=== PATIENT | female | born 1970 | race Caucasian/White ===

== ENCOUNTER 2018-06-25 21:07 | Emergency (ER) | payer BC ==
[~2018-06-25 21:07] MED LIST: Iopamidol 370 76% 100 ML VIAL ONE
[2018-06-25 21:39] LABS: #Basophils 0.1 thou/uL (0.0-0.2); #Eosinphils 0.2 thou/uL (0.0-0.7); #Lymphocytes 4.1 thou/uL (1.20-3.40); #Monocytes 0.7 thou/uL (0.11-0.59); #Neutrophils 4.6 thou/uL (1.40-6.50); %Basophils 1.5 % (0.0-1.0); %Eosinophils 1.6 % (0.0-10.0); %Lymphocytes 42.4 % (21.0-51.0); %Monocytes 7.4 % (0.0-10.0); %Neutrophils 47.2 % (42.0-75.0); Hemoglobin 15.2 g/dL (12.0-16.0); Mean Corpuscular HGB CONC 34.7 g/dL (32.0-36.0); Mean Corpuscular Hemoglobin 33.5 pg (27.0-31.0); Mean Corpuscular Volume 96.5 fL (78.0-98.0); Mean Platelet Volume 6.9 fL (7.4-10.4); Platelet Count 205 thou/uL (130-400); Red Blood Cell (RBC) Count 4.55 mill/uL (4.20-5.40); White Blood Cell (WBC) Count 9.8 thou/uL (4.8-10.8)
[2018-06-25 21:46] LABS: BHCG - Serum Negative (NEGATIVE); Pregs Control Background? CLEAR/WHITE (CLR/WHITE); Pregs Control Bar Appear? YES (CONTROL BAR)
[2018-06-25 21:55] LABS: ALT (SGPT) 33 U/L (8-55); AST (SGOT) 85 U/L (5-34); Alcohol 373 mg/dL (Less than 10); Alkaline Phosphatase 145 U/L (40-150); Anion Gap 16 mmol/L (10-20); BUN (Urea Nitrogen) Less than 4 mg/dL (7.0-18.7); Bilirubin, Total 0.5 mg/dL (0.2-1.2); Calc. Creatinine Clearance 0 mL/min (70-130); Calcium 8.9 mg/dL (7.8-10.44); Carbon Dioxide 26 mmol/L (22-29); Chloride 108 mmol/L (98-107); Estimated GFR-MDRD Greater than 90; Globulin 5.1 g/dL (2.4-3.5); Glucose 124 mg/dL (70-105); Potassium 3.5 mmol/L (3.5-5.1); Protein, Total 9.1 g/dL (6.0-8.3); Sodium 146 mmol/L (136-145)
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
== END 2018-06-25 23:07 | disposition home or self-care (01) ==
LOC: SCSER 21:07
DX: T71.9XXA Asphyxiation due to unspecified cause, initial encounter (principal); S00.83XA Contusion of other part of head, initial encounter; S10.91XA Abrasion of unspecified part of neck, initial encounter; I10 Essential (primary) hypertension; F17.210 Nicotine dependence, cigarettes, uncomplicated; Y04.2XXA Assault by strike against or bumped into by another person, initial encounter
CPT/HCPCS: 36415; 70450; 70486; 70498; 71045; 80053; 80307; 84703; 85025

== ENCOUNTER 2019-03-04 07:36 | Inpatient (IN) | payer BC ==
[2019-03-04 08:13] LABS: INR-International Normal Ratio 1.4; PTT 37.1 SEC (22.9-36.1); Prothrombin Time 17.2 SEC (12.0-14.7)
[2019-03-04] MEDS ORDERED: Pantoprazole 40 MG VIAL ONE (08:16)
[2019-03-04] MEDS ORDERED: Ondansetron PF 4 MG/2 ML Vial ONE (08:16)
[2019-03-04 08:17] LABS: Bilirubin Small (Negative); Blood, Urine Negative (Negative); Clarity Cloudy (Clear); Glucose, Urine (Dipstick) Negative (Negative); Leukocyte Negative (Negative); Nitrite Negative (Negative); Protein, Urine (Dipstick) Negative (Neg-Trace); Urobilinogen > or = 8.0 mg/dL (Less than 2)
[2019-03-04] MEDS ORDERED: Multivit, Adult Inj 10 ML VIAL ONE ×2 (08:17)
[2019-03-04 08:21] LABS: ALT (SGPT) 29 U/L (8-55); AST (SGOT) 106 U/L (5-34); Albumin 3.5 g/dL (3.5-5.0); Alcohol Less than 10 mg/dL (Less than 10); Alkaline Phosphatase 132 U/L (40-150); Anion Gap 18 mmol/L (10-20); BUN (Urea Nitrogen) Less than 4 mg/dL (7.0-18.7); Bilirubin, Total 5.4 mg/dL (0.2-1.2); Calc. Creatinine Clearance 0 mL/min (70-130); Calcium 9.3 mg/dL (7.8-10.44); Carbon Dioxide 22 mmol/L (22-29); Chloride 96 mmol/L (98-107); Estimated GFR-MDRD Greater than 90; Globulin 5.8 g/dL (2.4-3.5); Glucose 117 mg/dL (70-105); Lipase 12 U/L (8-78); Protein, Total 9.3 g/dL (6.0-8.3); Sodium 132 mmol/L (136-145)
[2019-03-04 08:22] LABS: Band 1 % (5-11); Eosinophils 2 % (0-10); Hemoglobin 13.1 g/dL (12.0-16.0); Lymphocytes 16 % (21-51); MDiff Complete? YES; Macrocytosis SLIGHT = 6-15 cells (100X) (0-5/hpf); Mean Corpuscular Hemoglobin 36.7 pg (27.0-31.0); Mean Platelet Volume 6.5 fL (7.4-10.4); Monocytes 6 % (0-10); Neutrophil 74 % (42-75); Platelet Count 179 thou/uL (130-400); Platelet Morphology Comment Appears Adequate; RBC Distribution Width 12.3 % (11.5-14.5); Red Blood Cell (RBC) Count 3.56 mill/uL (4.20-5.40); Target Cells SLIGHT = 2-5 cells (100X) (0-1/hpf); White Blood Cell (WBC) Count 13.4 thou/uL (4.8-10.8)
[2019-03-04] MEDS ORDERED: Thiamine HCl 200 MG/2 ML VIAL ONE (08:38)
[2019-03-04] MEDS ORDERED: Lorazepam 2 MG/ML VIAL ONE (08:40)
--- NOTE | 2019-03-04 08:48 | RAD ---
TWO VIEW CHEST: History: Dyspnea. Comparison: Portable chest, 06-25-18 FINDINGS: Lung wadsworth appear clear. No evidence of infiltrate or vascular congestion. The heart and mediastinum unremarkable. Osseous structures unremarkable. IMPRESSION: Unremarkable chest. POS: [facility]
[2019-03-04] MEDS ORDERED: Piperacillin/Tazobactam 3.375 GM VIAL ONE (08:58)
[2019-03-04] MEDS ORDERED: Sodium Chloride 0.9% 100 ML ONE (08:58)
--- NOTE | 2019-03-04 11:07 | CT ---
CT ABDOMEN AND PELVIS WITHOUT IV CONTRAST: INDICATION: Abdominal pain. COMPARISON: Comparison is made to a noncontrast CT abdomen and pelvis dated 09/29/2016. FINDINGS: Lung bases are clear. There has been significant change in the appearance of the liver since the prior study. The prior ex am revealed low attenuation suggesting fatty infiltration. Today's exam reveals hepatomegaly which was present previously; however, there are now numerous low-d ensity foci seen throughout the liver suggesting a diffuse process. Postcontrast exam of the abdomen is recommended for further characterization of the liver. The patient is post cholecystectomy. There is no evidence of biliary duct dilatation. Spleen unremarkable. Pancreas unremarkable. Nonspecific haziness is seen in the root of the mesentery suggesting inflammatory change. This is a new finding. The adrenal glands and kidneys are unremarkable. No hydronephrosis. Small bowel loops appear normal caliber. There is a moderate amount of free fluid seen in the pelvis. A small amount of fluid in the right co lonic gutter. Aorta is calcified but normal caliber. Nonspecific paraaortic lymph nodes appear similar to the prior exam. Review of the osseous structures reveals an irregularly shaped area of sclerosis in the right ileum. This is stable from prior exam and most likely represents a benign bone island. IMPRESSION: 1. There is hepatomegaly. Numerous tiny low-density foci are seen throughout the liver indicating a diffuse process. Recommend postcontrast CT of the abdomen to further characterize the liver finding s. 2. There is small volume ascites with a moderate amount of free fluid in the pelvis. Evidence of me senteric edema. POS: [facility]
[2019-03-04] MEDS ORDERED: Ondansetron PF 4 MG/2 ML Vial IVP PRN (15:30)
[2019-03-04] MEDS ORDERED: Senokot S 8.6-50 MG TAB PO PRN (15:30)
[2019-03-04] MEDS ORDERED: HYDROcodone/Acetaminophen 5/325 mg Tablet PO PRN (15:30)
[2019-03-04] MEDS ORDERED: Guaifenesin DM 100-10/5 ML UDCUP PO PRN (15:30)
[2019-03-04] MEDS ORDERED: Acetaminophen 325 MG TAB PO PRN (15:30)
[2019-03-04] MEDS ORDERED: Bisacodyl 10 MG SUPP PR PRN (15:30)
[2019-03-04 16:07] VITALS: BMI 24.3
[2019-03-04] MEDS ORDERED: Gadobenate Dimeglumine 529 MG/1 ML (20ML VIAL) ONE (16:38)
[2019-03-04] MEDS: Sodium Chloride 0.9% 1,000 ML IV SCH (17:21)
[2019-03-04] MEDS ORDERED: Temazepam 15 MG CAP PO PRN (17:53)
--- NOTE | 2019-03-04 18:01 | MRI ---
MRI ABDOMEN WITH AND WITHOUT IV CONTRAST: 03/04/19 HISTORY: Abdominal pain, alcohol abuse. FINDINGS: Correlation is made with the CT abdomen and pelvis from the same date. The liver demonstrates irregular surface consistent with cirrhosis. There is diffusely decreased sign al on the [id number] images compared to the in-phase images consistent with fatty infiltration. The re are diffuse tiny low intensity lesions on T1 and T2 images indicative of iron deposition. No enhan cing mass is seen in the liver to suggest hepatocellular carcinoma. The spleen measures 11.5 cm in le ngth. The pancreas, adrenal glands and kidneys are normal. A small amount of ascites is noted. There is no evidence of aneurysmal dilatation of the abdominal aorta. The bone marrow signal is normal. No portal splenic thrombosis is seen. The patient is also post cholecystectomy. No abnormal biliary duct al dilatation is seen. IMPRESSION: 1. Cirrhosis of the liver with fatty infiltration and hemosiderin deposition. 2. Mild ascites. 3. No evidence of enhancing hepatic mass to suggest hepatocellular carcinoma. POS: [facility]
--- NOTE | 2019-03-04 18:11 | HP ---
REASON FOR ADMISSION: Abdominal pain, alcoholic hepatitis, alcohol abuse, cirrhosis. HISTORY OF PRESENTING ILLNESS: The patient gives history of having abdominal pain for almost a month. This was more in the epigastric area and slowly moved into right lower quadrant. The patient says the abdominal pain is 3/10 to 4/10 in intensity and is always there. There is no radiation of this pain as such. Her last bowel movement was this morning and it was semi-solid. She states the stool was floating in the toilet. No bleeding per rectum. No complaints of chest pain, palpitation, PND, or orthopnea. No complaints of fever as such at home. She is currently ambulating in the room and was doing so at home as well. She admits to drinking 7 beers a day on a daily basis. PAST MEDICAL AND SURGICAL HISTORY: Hypertension; cholecystectomy; hysterectomy, which is partial. Colonoscopy done 7 years back in [place] was normal as far as she knows. She has had a stress test done 7 years back in [place] as well, which was normal as far as she knows. No angiogram was done. CURRENT MEDICATIONS: The patient does not take any medications on a regular basis. ALLERGIES: TO CODEINE. PERSONAL HISTORY: Drinks 6 to 7 beers on a daily basis and does not abuse drugs. Smokes 6 to 7 cigarettes a day. . FAMILY HISTORY: Both parents at the age of 61. Mother had complications from small-bowel obstruction, of sepsis. Father had complications from CABG, wound infection, and complications. CODE STATUS: Full. Power of attorney at law is her . REVIEW OF SYSTEMS: CONSTITUTIONAL: Negative for weight loss or gain, ability to conduct usual activities. SKIN: Negative for rash, itching. EYES: Negative for double vision, pain. ENT/MOUTH: Negative for nose bleeding, neck stiffness, pain, tenderness. CARDIOVASCULAR: Negative for palpitations, dyspnea on exertion, orthopnea. RESPIRATORY: Negative for shortness of breath, wheezing, cough, hemoptysis, fever or night sweats. GASTROINTESTINAL: Negative for poor appetite, abdominal pain, heartburn, nausea , vomiting, constipation, or diarrhea. GENITOURINARY: Negative for urgency, frequency, dysuria, nocturia. MUSCULOSKELETAL: Negative for pain, swelling. NEUROLOGIC/PSYCHIATRIC: Negative for anxiety, depression. ALLERGY/IMMUNOLOGIC: Negative for skin rash, bleeding tendency. PHYSICAL EXAMINATION: GENERAL: The patient is a 48-year-old female, who is currently not in any acute distress. VITAL SIGNS: Blood pressure 178/90, pulse 104 per minute, respiratory rate 16 per minute, temperature 98 degrees Fahrenheit, and saturating 99% on room air. NECK: Supple. No elevated JVD. HEENT: Eyes; extraocular muscles intact. Pupils reacting to light. There is scleral icterus plus. Oral cavity; mucous membranes are dry. No exudates or congestion. CARDIOVASCULAR: S1 and S2 heard. Regular rhythm. RESPIRATORY: Air entry 1+ bilateral. No rales or rhonchi. Spider nevi are seen on the anterior chest wall, which were multiple. These are also seen on the extremities. ABDOMEN: Soft. No rigidity or guarding. Bowel sounds are heard. There is mild tenderness to deep palpation in the epigastric area. EXTREMITIES: No peripheral edema or calf tenderness. Peripheral pulses 1+ bilateral. No ischemic ulcerations or gangrene. CENTRAL NERVOUS SYSTEM: No gross focal deficits noted. The patient is oriented well. PSYCHIATRIC: The patient's mood is euthymic. No hallucinations or delusions. LABORATORY DATA: EKG done shows normal sinus rhythm at 80 beats per minute. There are nonspecific ST-T wave changes. Chest x-ray done, was unremarkable. CT abdomen and pelvis without IV contrast done showed hepatomegaly with numerous tiny low-density foci are seen throughout the liver indicating a diffuse process. The small volume ascites with a moderate amount of free fluid in the pelvis. Evidence for mesenteric edema is seen. White count of 13, H and H 13 and 36, platelet count 179 with 74% neutrophils, MCV is 102. PT/INR of 17 and 1.4, PTT 37. Serum bicarb 22, BUN is less than 4, creatinine 0.6, glucose 117. Lactic acid 1.8. AST 106 , ALT 29, alkaline phosphatase 132, total bilirubin 5.4, albumin is 3.5, total protein 9.3. Lipase is 12. Troponin I is negative at 0.01. Ammonia levels of 47. Plasma alcohol is less than 10. CLINICAL IMPRESSION AND PLAN: The patient will be admitted to medical floor for abdominal pain, alcoholic hepatitis, alcohol abuse, and cirrhosis. We will obtain an MRI of the abdomen for better visualization of her liver and pancreas. The patient has clinical and lab findings of cirrhosis as the patient likely is a chronic alcohol user. She will be on ASE protocol. CAT scan shows evidence of mesenteric edema. It is unclear if the patient has mesenteric ischemia. The patient has strong family history of heart disease. She has had prior history of carotid stenosis as well. In view of above, we will monitor her closely and if needed, we will obtain a CT angiogram of the abdomen. We will continue to closely monitor her on medical floor for now for any withdrawal symptoms. I have discussed her current findings and plan with the patient and her at bedside. The patient is willing to quit alcohol completely. Job ID: [id number] [facility]
[2019-03-04 18:59] LABS: Iron 141 ug/dL (50-170); Iron Binding Capacity, Total 163 mcg/dL (265-497)
[2019-03-04 19:19] LABS: HBCM Index 0.06 S/CO (0-0.79); HBSAg Index 0.47 S/CO (0-0.99); Hep B Surf Ag Non-Reactive S/CO (NonReactive); Hep C IgG Ab Non-Reactive (NonReactive); Hep C Index 0.16 S/CO (0-0.79); Hepatitis B Core IgM Abs Non-Reactive (NonReactive)
[2019-03-04 19:23] LABS: HBSAB Concentration 25.88 mIU/mL; Hep B Surf AB Reactive (NonReactive)
--- NOTE | 2019-03-04 22:38 | CON ---
DATE OF CONSULTATION: 03/04/2019 CHIEF COMPLAINT: Abdominal pain. HISTORY OF PRESENT ILLNESS: Ms. Lawson is a 48-year-old woman with a history of alcohol abuse, who came to the emergency room today with abdominal pain. She states she has had some epigastric aching abdominal pain that radiates to the lower abdomen on and off over the last couple of years. In the past, it would come for a couple of days and then go away around once per month. However, for the last 3-4 weeks, the pain has been continuous from morning to night. She has had some nausea, but no ongoing vomiting now. She has had no hematemesis. She has been having diarrhea with 10-12 liquidy to mushy stools per day. No fever. No chest pain or shortness of breath. PAST MEDICAL HISTORY: Hypertension, alcohol abuse. PAST SURGICAL HISTORY: Cholecystectomy, hysterectomy. HABITS: She drinks a six pack a day. She smokes half pack a day. ALLERGIES: NO DRUGS. FAMILY HISTORY: Negative for GI malignancy. ALLERGIES: CODEINE. MEDICATIONS: Prior to admission none. REVIEW OF SYSTEMS: Negative x10 systems reviewed except as stated in history of present illness. PHYSICAL EXAMINATION: VITAL SIGNS: Temperature 98.1, pulse 86, blood pressure 123/75. GENERAL: She is in no acute distress. She is alert and oriented x3. HEENT: Eyes have scleral icterus. Oropharynx is clear without lesions. SKIN: Her skin exam reveals jaundice. NECK: She has no cervical or supraclavicular lymphadenopathy. LUNGS: Clear to auscultation bilaterally. HEART: Regular rate and rhythm without murmur. She has no asterixis. She has multiple spider angiomas on her chest. ABDOMEN: Soft with active bowel sounds. She is tender in the upper abdomen with milder tenderness in the lower abdomen. There is no guarding. EXTREMITIES: No lower extremity edema. Cranial nerves are grossly intact. LABORATORY DATA: Sodium 132, potassium 4.0, chloride 96, CO2 22, BUN 4, creatinine 0.66, glucose 117, bilirubin 5.4. This is up from 1.7 in August. AST 106, ALT 29, alkaline phosphatase 132, albumin 3.5, lipase 12. She did have a plasma alcohol level of 373 back in June of 2018. She did not have detectable alcohol. Today INR 1.4. White blood cell count 13.4, hemoglobin 13.1, MCV 102, platelets 179. IMPRESSION: 1. Abnormal liver function tests. Physical exam and findings are most consistent with decompensated cirrhosis. However, there could be a significant component of acute alcoholic hepatitis as well. She has elevated INR, elevated bilirubin, has a history of alcohol abuse and we will check for other causes of liver disease as well including checking iron saturation, viral hepatitis panel and autoimmune markers and alpha-1 antitrypsin level and ceruloplasmin. 2. Abdominal pain. She has a very heterogeneous appearing liver. She has hepatomegaly and numerous tiny low-density foci throughout the liver. This is not just typical of fatty liver disease. We will need to consider hepatocellular carcinoma or other neoplastic process as well. RECOMMENDATIONS: 1. Alcohol cessation. 2. DVT prophylaxis. 3. MRI of the liver. 4. Viral hepatitis panel, autoimmune liver tests, alpha-1 antitrypsin level, ceruloplasmin. 5. Check alpha-fetoprotein. 6. There does not appear to be a significant amount of ascites to indicate that she has SBP as a source for her abdominal pain. Her pain is more of a chronic issue. Job ID: [id number]
[2019-03-05] MEDS: Sodium Chloride 0.9% 1,000 ML IV SCH (05:50)
[2019-03-05 06:13] LABS: ALT (SGPT) 19 U/L (8-55); AST (SGOT) 69 U/L (5-34); Albumin 2.9 g/dL (3.5-5.0); Alkaline Phosphatase 104 U/L (40-150); Anion Gap 11 mmol/L (10-20); BUN (Urea Nitrogen) 4 mg/dL (7.0-18.7); Bilirubin, Total 3.9 mg/dL (0.2-1.2); Calc. Creatinine Clearance 108 mL/min (70-130); Calcium 8.3 mg/dL (7.8-10.44); Carbon Dioxide 21 mmol/L (22-29); Chloride 103 mmol/L (98-107); Estimated GFR-MDRD Greater than 90; Globulin 4.3 g/dL (2.4-3.5); Glucose 78 mg/dL (70-105); Potassium 3.8 mmol/L (3.5-5.1); Protein, Total 7.2 g/dL (6.0-8.3); Sodium 131 mmol/L (136-145)
[2019-03-05 06:51] LABS: #Basophils 0.1 thou/uL (0.0-0.2); #Eosinphils 0.3 thou/uL (0.0-0.7); #Lymphocytes 2.6 thou/uL (1.20-3.40); #Neutrophils 9.1 thou/uL (1.40-6.50); %Basophils 0.7 % (0.0-1.0); %Eosinophils 2.2 % (0.0-10.0); %Lymphocytes 20.1 % (21.0-51.0); %Monocytes 7.4 % (0.0-10.0); %Neutrophils 69.6 % (42.0-75.0); Hemoglobin 11.1 g/dL (12.0-16.0); MDiff Complete? YES; Macrocytosis SLIGHT = 6-15 cells (100X) (0-5/hpf); Mean Corpuscular HGB CONC 32.9 g/dL (32.0-36.0); Mean Corpuscular Hemoglobin 34.9 pg (27.0-31.0); Mean Platelet Volume 7.8 fL (7.4-10.4); Platelet Count 155 thou/uL (130-400); RBC Distribution Width 12.6 % (11.5-14.5); Red Blood Cell (RBC) Count 3.18 mill/uL (4.20-5.40)
[2019-03-05] MEDS ORDERED: Multivitamins, Adult 10 ML, Folic Acid 1 MG, Thiamine HCl 100 MG in Dextrose 5 %-0.45 %... IV SCH (08:00)
[2019-03-05] MEDS ORDERED: Enoxaparin Sodium 40 MG/0.4 ML SYRINGE SC SCH (09:00)
[2019-03-05 11:13] LABS: Cardiac Risk 9.6 (Less than 4.5)
[2019-03-05 11:23] VITALS: BP 157/90; TEMP 98.8
--- NOTE | 2019-03-05 11:30 | PRG ---
DATE OF SERVICE: 03/05/2019 SUBJECTIVE: Ms. Lawson has no abdominal pain today. No acute complaints. She is wanting to go home. OBJECTIVE: VITAL SIGNS: Temperature 98.7, pulse 77, blood pressure 135/75. GENERAL: She is jaundiced. No acute distress. Alert and oriented x3. NEUROLOGIC: Reveals no asterixis. LUNGS: Clear to auscultation bilaterally. HEART: Regular rate and rhythm without murmur. ABDOMEN: Soft, nontender, nondistended. Bowel sounds are present. EXTREMITIES: No lower extremity edema. LABORATORY DATA: White blood cell count 13.0, hemoglobin 11.1, and platelets 155. INR 1.4. Creatinine 0.63. Bilirubin 3.9, down from 5.4. AST 69, ALT 19, alkaline phosphatase 104, albumin 2.9. Alpha fetoprotein 3.7. IMPRESSION: 1. Alcoholic cirrhosis of the liver, decompensated likely with ongoing acute alcohol use. 2. Diarrhea, appears to be doing better today. Stool studies have been requested, but have been unable to be collected as of yet. 3. Heterogeneous appearance to the liver. MRI shows no focal lesion to suggest hepatoma. Her alpha fetoprotein is normal. MRI does confirm a nodular liver, confirming cirrhosis. 4. Alcohol abuse. She states that she has a history of DTs. She is concerned about withdrawal and would rather go home. RECOMMENDATIONS: 1. Additional blood work has been requested to evaluate for other causes of liver disease including autoimmune markers. Her viral hepatitis serology is negative so far. Her iron saturation is elevated. We will send a hemochromatosis gene PCR. There was some increased hemosiderin in the liver noted by MRI as well. 2. Complete alcohol cessation is advised. Assistance with rehab is recommended. She states that she has done rehab before. She like to be discharged potentially and discuss this with her primary care doctor. I did discuss the risks of ongoing alcohol use given her decompensated cirrhosis. I have advised that she follow up in GI Clinic for further care and management of her chronic liver disease. Job ID: [id number]
--- NOTE | 2019-03-05 18:39 | DIS ---
DATE OF ADMISSION: 03/04/2019 DATE OF DISCHARGE: 03/05/2019 DISCHARGE DISPOSITION: To home. PRIMARY DISCHARGE DIAGNOSES: Alcoholic hepatitis, alcohol abuse, cirrhosis secondary to alcohol usage, chronic abdominal pain, hypertension. PROCEDURES DONE DURING HOSPITALIZATION: CT of the abdomen and pelvis without IV contrast done, showed hepatomegaly with numerous tiny low-density foci throughout the liver, small volume ascites with a moderate amount of free fluid in the pelvis, evidence of mesenteric edema. MRI of the liver and pancreas protocol done, showed findings suggestive of cirrhosis of the liver with fatty infiltration and hemosiderin deposition, mild ascites. No evidence of enhancing hepatic mass to suggest hepatocellular carcinoma. White count of 13, H and H of 11 and 33, platelet count 155, MCV is 106 with 69% neutrophils. INR 1.4, PTT 37, PT 17.2. Triglycerides 129, total cholesterol 164, LDL 121, HDL 17. AFP tumor marker is 3.7. Discharge total bilirubin 3.9, AST 69, ALT 19, alkaline phosphatase 104, BUN 4, creatinine 0.6. Serum iron 141, TIBC 163. Ammonia level 47. Lipase is 12. HBS antigen nonreactive. Hepatitis B core IgM antibody nonreactive. Hep C antibody nonreactive. HBS antibody reactive. DISCHARGE MEDICATIONS: 1. Atorvastatin 40 mg p.o. daily. 2. Librium tapering dose, starting at 25 mg p.o. three times daily for alcohol withdrawal symptoms. 3. Folic acid 1 mg p.o. daily. 4. Thiamine 100 mg p.o. daily. ALLERGIES: ALLERGIC TO CODEINE. DISCHARGE PLAN: The patient to follow up with Dr. Enrique Lopez in 3 weeks. She needs to follow up with her primary care physician in 1 week. BRIEF COURSE DURING HOSPITALIZATION: The patient initially came in with complaints of abdominal pain for almost a month. This was in the epigastric area. Initial workup and clinical exam were consistent with cirrhosis secondary to alcohol use. The patient has had multiple workups done including CT of the abdomen and pelvis , and abdominal MRI with liver and pancreas protocol done. The findings on the MRI suggest cirrhosis. There is also a suspicion for possible hemosiderin deposition. Hepatitis panel was negative. The patient was counseled with regard to alcohol use, complete cessation. She was given prescriptions for Librium to help with her craving for alcohol. AFP tumor marker levels were normal. The patient's abdominal pain has eased up. She was gently hydrated during her stay here with banana bag. She was prescribed folic acid, thiamine, and Lipitor prior to discharge. She needs to follow up with her primary care physician in a week and Dr. Enrique Lopez in 2 to 3 weeks. She is strongly counseled not to drink alcohol or drive while she is taking Librium. Please note, I have seen and examined the patient on the day of discharge. Job ID: [id number] [facility]
--- NOTE | 2019-03-07 08:01 | CON ---
DATE OF CONSULTATION: ADDENDUM: Next number under the impression is diarrhea with 10 to 12 stools per day. Recommendations; check stool for C. diff culture, ova and parasite, lactoferrin, and fecal fat. Job ID: [id number]
--- NOTE | 2019-03-08 07:05 | PQF ---
[employer] JACKIE Zamorano JEFFERY TIRADO MD [id number] CLINICAL DOCUMENTATION CLARIFICATION FORM: POST DISCHARGE Addendum to original discharge summary date: ____ Late entry note date: __ DATE: 03/08/2019 ATTN: JEFFERY TIRADO MD Please exercise your independent, professional judgment in responding to the clarification form. Clinical indicators are provided on the bottom of this form for your review Please check appropriate box(s): [x ] Hyponatremia please specify etiology, if known __due to excessive alcohol use [ ] Hyponatremia due to SIADH (Syndrome of Inappropriate Secretion of Antidiuretic Hormone) [ ] Other diagnosis [ ] Unable to determine CLINICAL INDICATORS - SIGNS / SYMPTOMS / LABS Sodium 132 on 03/04 - Documented in laboratory result Sodium 131 on 03/05 - Documented in laboratory result Adbominal pain - Documented in H&P on 03/04 by JEFFERY TIRADO MD [employer] Alcoholic hepatitis - Documented in Dischrge summary on 03/05 by JEFFERY TIRADO MD Alcohol abuse - Documented in Dischrge summary on 03/05 by JEFFERY TIRADO MD HTN - Documented in Dischrge summary on 03/05 by JEFFERY TIRADO MD TREATMENTS: Sodium chloride 0.9% 100 mL - Documentd in Medication snapshot (This form is maintained as a part of the permanent medical record) 2014 [employer]. All Rights Reserved [email or web address] [not provided] MTDD
[2019-03-09 17:29] LABS: EliA Vaculitis New Method **** NEW METHOD ****; Mitochondrial Ab 0.6 U/mL (<4 Negative)
== END 2019-03-05 11:21 | disposition home or self-care (01) | DRG 433 ==
LOC: SCSER 07:36 → SCSEROBS 09:28 → T4-A 12:55
PROVIDERS: ADMIT Internal Medicine; ATTEND Internal Medicine
DX: K70.11 Alcoholic hepatitis with ascites (principal); E87.1 Hypo-osmolality and hyponatremia; I10 Essential (primary) hypertension; F17.210 Nicotine dependence, cigarettes, uncomplicated; F10.10 Alcohol abuse, uncomplicated; K70.30 Alcoholic cirrhosis of liver without ascites; R19.7 Diarrhea, unspecified; K66.8 Other specified disorders of peritoneum; Z90.49 Acquired absence of other specified parts of digestive tract; Z90.710 Acquired absence of both cervix and uterus; Z88.5 Allergy status to narcotic agent; Z95.1 Presence of aortocoronary bypass graft
CPT/HCPCS: 36415; 71046; 74176; 74183; 80053; 80061; 80307; 81003; 82105; 82140; 82390; 83516; 83540; 83550; 83605; 83690; 84484; 85025; 85610; 85730; 86705; 86706; 86709; 86803; 87340; 93005; 94760; 96365; 96366; 96368; 96375; 99406; A9577; C9113; J1650; J2060; J2405; J2543; J3411; J3490; J7042

== ENCOUNTER 2019-06-24 11:14 | Outpatient (CLI) | payer BC ==
--- NOTE | 2019-06-24 12:18 | RAD ---
CERVICAL SPINE 3 VIEWS: HISTORY: Neck pain. FINDINGS: On the AP projection, there are calcifications in the left and right neck soft tissues compatible wit h atherosclerosis. There is no malalignment on the AP projection. The odontoid process is intact. Lateral masses of C1 and C2 articulate appropriately. Predental space is normal. No prevertebral soft tissue swelling. Cervical spine vertebral body height is maintained. No fracture. No significant loss of disc space he ight from C2-C3 through C4-C5. Mild loss of disc space height and osteophyte formation at C5-C6. IMPRESSION: 1. Mild degenerative change at C5-C6. If there is continued concern for foraminal stenosis or centra l canal stenosis, consider MRI. 2. Soft tissue calcification in the left or right neck which may represent carotid atherosclerosis. C orrelation made with CT angiogram of the neck suggests progression of atherosclerotic disease. Consider further evaluation with carotid ultrasound. CODE T Transcribed Date/Time: 06/24/2019 12:23 PM
--- NOTE | 2019-06-24 12:26 | RAD ---
THREE VIEWS RIGHT SHOULDER: HISTORY: Pain. COMPARISON: None. FINDINGS: Remote distal clavicle fracture. No acute fractures. There is associated separation of the clavicle a t the fracture site with high riding right clavicle and probable ligamentous injury and calcification of the coracoclavicular ligament. Glenohumeral joint space is preserved. No fracture or dislocation. IMPRESSION: Chronic changes due to remote trauma as described above. Transcribed Date/Time: 06/24/2019 12:35 PM
--- NOTE | 2019-06-24 12:28 | RAD ---
THREE VIEWS LEFT SHOULDER: HISTORY: Pain. COMPARISON: None. FINDINGS: Glenohumeral joint space is preserved. No evidence of fracture or dislocation. Distal clavicle is somewhat high riding with respect to the adjacent acromion. Correlate for grade I ligamentous sprain. IMPRESSION: Correlate for grade I ligamentous sprain of the acromioclavicular ligament. Transcribed Date/Time: 06/24/2019 12:33 PM
[2019-06-24 13:57] LABS: #Basophils 0.1 thou/uL (0.0-0.2); #Eosinphils 0.1 thou/uL (0.0-0.7); #Lymphocytes 3.1 thou/uL (1.20-3.40); #Monocytes 1.3 thou/uL (0.11-0.59); #Neutrophils 5.3 thou/uL (1.40-6.50); %Basophils 0.8 % (0.0-1.0); %Eosinophils 1.5 % (0.0-10.0); %Lymphocytes 30.9 % (21.0-51.0); %Neutrophils 53.7 % (42.0-75.0); Hemoglobin 12.1 g/dL (12.0-16.0); Mean Corpuscular HGB CONC 32.9 g/dL (32.0-36.0); Mean Corpuscular Hemoglobin 32.7 pg (27.0-31.0); Mean Corpuscular Volume 99.4 fL (78.0-98.0); Mean Platelet Volume 7.2 fL (7.4-10.4); Platelet Count 281 thou/uL (130-400); RBC Distribution Width 14.1 % (11.5-14.5); White Blood Cell (WBC) Count 9.9 thou/uL (4.8-10.8)
[2019-06-24 14:18] LABS: ALT (SGPT) 21 U/L (8-55); AST (SGOT) 47 U/L (5-34); Albumin 3.3 g/dL (3.5-5.0); Alkaline Phosphatase 107 U/L (40-110); Anion Gap 14 mmol/L (10-20); BUN (Urea Nitrogen) Less than 4 mg/dL (7.0-18.7); Bilirubin, Total 2.2 mg/dL (0.2-1.2); Calc. Creatinine Clearance 0 mL/min (70-130); Calcium 9.3 mg/dL (7.8-10.44); Carbon Dioxide 25 mmol/L (22-29); Chloride 101 mmol/L (98-107); Estimated GFR-MDRD Greater than 90; Globulin 4.3 g/dL (2.4-3.5); Glucose 85 mg/dL (70-105); Iron 116 ug/dL (50-170); Potassium 4.6 mmol/L (3.5-5.1); Protein, Total 7.6 g/dL (6.0-8.3); Sodium 135 mmol/L (136-145)
== END 2019-06-24 11:15 | disposition home or self-care (01) ==
LOC: SCSRAD 11:14
PROVIDERS: ATTEND Family Medicine
DX: K70.30 Alcoholic cirrhosis of liver without ascites (principal); S43.402A Unspecified sprain of left shoulder joint, initial encounter; M47.812 Spondylosis without myelopathy or radiculopathy, cervical region; M79.9 Soft tissue disorder, unspecified
CPT/HCPCS: 36415; 72040; 80053; 82728; 83540; 85025

== ENCOUNTER 2019-11-15 08:08 | Outpatient (CLI) | payer BC ==
[2019-11-15 08:47] LABS: Estimated GFR-MDRD - POC Greater than 90
--- NOTE | 2019-11-15 09:32 | MRI ---
MRI BRAIN WITH AND WITHOUT CONTRAST: DATE: 11/15/2019 HISTORY: 49-year-old female follow-up intracranial tumor: Meningioma COMPARISON: 08/31/2018 TECHNIQUE: Multiplanar, multisequence MRI of the brain performed pre- and post-IV injection of gadolinium based contrast agent. FINDINGS: Again noted is the en plaque, enhancing, diffusely partially calcified dural based extra-axial tumor in the right parietal bone. Previous measurements were given as 4 x 3 x 1.5 cm. It scallops the inner table of the bone. There is serpentine strip of curvilinear enhancement in the right parietal b one. The mass mildly chronically indents the right lateral temporal parietal brain parenchyma without causing vasogenic edema. There is no other mass effect. No midline shift. No obstructive hydr ocephalus. No abnormal intra-axial enhancement. No restricted diffusion. No recent or remote intra-axial hemorrhage. No significant chronic ischemic white matter changes. No interval car changer all. IMPRESSION: No interval change in the right parietal en plaque meningioma.
== END 2019-11-15 08:09 | disposition home or self-care (01) ==
LOC: SCSMRI 08:08
PROVIDERS: ATTEND Neurological Surgery
DX: C71.9 Malignant neoplasm of brain, unspecified (principal); D32.9 Benign neoplasm of meninges, unspecified
CPT/HCPCS: 70553; 82565